=== PATIENT | female | born 1980 | race African-American/Black ===

== ENCOUNTER 2020-12-21 09:47 | Outpatient (CLI) | payer OTHER ==
[~2020-12-21 09:47] MED LIST: ENOX60SY4 SQ; ENOX80SY5 SQ; FERR325T18 PO; HYDR200T72 PO; OXYC1TAB12 PO; PNV91TAB3 PO
== END 2020-12-21 23:59 | disposition home or self-care (01) ==
LOC: CFH 09:47
PROVIDERS: ATTEND Obstetrics & Gynecology Reproductive Endocrinology
DX: Z02.9 Encounter for administrative examinations, unspecified (principal)